=== PATIENT | male | born 1950 | race American Indian/Alaskan Native ===

== ENCOUNTER 2016-07-12 21:39 | Inpatient (IN) | payer OTHER ==
[2016-07-12] MEDS ORDERED: NACL 0.9% 1000 ML 1,000 ML IV ONE (21:55)
--- NOTE | 2016-07-12 22:05 | Emergency Department Report ---
ED General Adult HPI - General Chief complaint: GI Bleed Stated complaint: RECTAL BLEEDING Time Seen by Provider: 07/12/16 22:02 Source: patient, EMS (ems notes not available at time of chart dictation), RN notes reviewed, old records reviewed Mode of arrival: Ambulatory Limitations: No Limitations - History of Present Illness Initial comments: This is a 66-year-old male. He is previously unknown to me. Has a past medical history of homelessness, symptomatic anemia. Patient had endoscopy performed at this hospital November 2015, which demonstrated multiple ulcers in the antrum of the stomach and duodenum, gastroenterology recommended PPI twice a day and Carafate. Patient indicates he cannot afford his medications. He presents to the ER with black tarry stool, vomiting a few times. There is no hematemesis. He is not dizzy. He is not lightheaded. There is no chest pain. There is no shortness of breath. -: Gradual Consistency: constant Improves with: none Worsens with: none Associated Symptoms: nausea/vomiting. denies: confusion, chest pain, cough, diaphoresis, fever/chills, headaches, loss of appetite, malaise, shortness of breath, syncope, weakness - Related Data Home Medications Medication Instructions Recorded Confirmed Last Taken No Known Home Medications [No 07/13/16 07/13/16 Unknown Reported Home Medications] Allergies Allergy/AdvReac Type Severity Reaction Status Date / Time No Known Allergies Allergy Unverified 11/09/15 12:39 ED Review of Systems ROS: Stated complaint: RECTAL BLEEDING Other details as noted in HPI Constitutional: denies: malaise Eyes: denies: vision change ENT: denies: epistaxis Respiratory: denies: cough Cardiovascular: denies: chest pain Gastrointestinal: hematemesis, hematochezia Genitourinary: denies: urgency, dysuria Musculoskeletal: denies: back pain Skin: denies: rash Psychiatric: denies: homicidal thoughts, suicidal thoughts ED Past Medical Hx - Past Medical History Hx Hypertension: No Hx Congestive Heart Failure: No Hx Diabetes: No Hx Sickle Cell Disease: No Hx Asthma: No Hx COPD: No - Surgical History Additional Surgical History: right arm and leg and left elbow repair - Social History Smoking Status: Current Some Day Smoker - Medications Home Medications: Home Medications Medication Instructions Recorded Confirmed Last Taken Type No Known Home Medications [No 07/13/16 07/13/16 Unknown History Reported Home Medications] ED Physical Exam - General Limitations: No Limitations General appearance: alert, in no apparent distress - Head Head exam: Present: atraumatic, normocephalic - Eye Eye exam: Present: normal appearance, EOMI. Absent: nystagmus - ENT ENT exam: Present: normal exam, normal orophraynx, mucous membranes moist, normal external ear exam - Neck Neck exam: Present: normal inspection, full ROM. Absent: tenderness, meningismus - Respiratory Respiratory exam: Present: normal lung sounds bilaterally. Absent: respiratory distress, wheezes, rales, rhonchi, stridor, chest wall tenderness, accessory muscle use, decreased breath sounds - Cardiovascular Cardiovascular Exam: Present: normal rhythm, tachycardia, normal heart sounds. Absent: systolic murmur, diastolic murmur, rubs, gallop - GI/Abdominal GI/Abdominal exam: Present: soft, normal bowel sounds. Absent: distended, tenderness, guarding, pulsatile mass - Rectal Rectal exam: Present: normal inspection, normal rectal tone, heme (+) stool, black stool (during rectal examination, I am escorted by ER nurse Rafael Colon) - Extremities Exam Extremities exam: Present: normal inspection, full ROM, normal capillary refill. Absent: pedal edema, joint swelling, calf tenderness - Back Exam Back exam: Present: normal inspection, full ROM. Absent: tenderness, CVA tenderness (R), CVA tenderness (L), muscle spasm, paraspinal tenderness, vertebral tenderness - Neurological Exam Neurological exam: Present: alert, oriented X3, normal gait, other (Extraocular movements intact. Tongue midline. No facial droop. Facial sensation intact to light touch in the V1, V2, V3 distribution bilaterally. 5 and 5 strength in 4 extremities.. Sensation is intact to light touch in 4 extremities.). Absent : motor sensory deficit - Psychiatric Psychiatric exam: Present: normal affect, normal mood. Absent: homicidal ideation, suicidal ideation - Skin Skin exam: Present: warm, dry, intact, normal color. Absent: rash ED Course Vital Signs 07/12/16 07/12/16 07/12/16 21:54 22:57 23:01 Temperature 98.7 F Pulse Rate 117 H Respiratory 20 Rate Blood Pressure 113/65 [Right] O2 Sat by Pulse 99 98 99 Oximetry 07/12/16 07/12/16 07/12/16 23:11 23:21 23:31 Temperature Pulse Rate 96 H 97 H 91 H Respiratory 14 15 16 Rate Blood Pressure [Right] O2 Sat by Pulse 98 99 98 Oximetry 07/12/16 07/12/16 07/13/16 23:41 23:51 00:01 Temperature Pulse Rate 97 H 94 H 97 H Respiratory 13 15 15 Rate Blood Pressure [Right] O2 Sat by Pulse 97 99 99 Oximetry 07/13/16 07/13/16 07/13/16 00:11 00:21 00:30 Temperature Pulse Rate 100 H 94 H 92 H Respiratory 16 17 14 Rate Blood Pressure [Right] O2 Sat by Pulse 99 97 97 Oximetry 07/13/16 07/13/16 07/13/16 00:41 00:51 01:01 Temperature Pulse Rate 101 H 101 H 99 H Respiratory 13 15 14 Rate Blood Pressure [Right] O2 Sat by Pulse 99 98 97 Oximetry 07/13/16 07/13/16 07/13/16 01:11 01:21 01:31 Temperature Pulse Rate 97 H 104 H 103 H Respiratory 13 15 15 Rate Blood Pressure [Right] O2 Sat by Pulse 97 97 97 Oximetry 07/13/16 01:45 Temperature Pulse Rate Respiratory Rate Blood Pressure 137/79 [Right] O2 Sat by Pulse Oximetry - Reevaluation(s) Reevaluation #1: 07/12/16 23:31 differential diagnosis: Alcoholism, upper GI bleed, GERD, gastritis Assessment and plan: 66-year-old male who had endoscopy a few months ago showing multiple ulcers, noncompliant with medications, black stool, guaiac positive, tachycardic, most likely upper GI bleed. He will be started on IV fluids and Protonix. He is not homicidal or suicidal. An initial metabolic panel was hemolyzed, repeat metabolic panel has been ordered. Case is discussed with gastroenterology, Dr. Starkey, he recommends nothing by mouth after midnight, recommends admission to the hospital for further evaluation and management of presumed upper GI bleed. The case is discussed with the Hospital physician, Dr. Malcolm, who accepts the patient to his service. 07/13/16 00:52 ED Medical Decision Making - Lab Data Result diagrams: 07/12/16 22:30 07/12/16 23:33 Vital Signs 07/12/16 21:54 Temperature 98.7 F Pulse Rate 117 H Respiratory 20 Rate Blood Pressure 113/65 [Right] O2 Sat by Pulse 99 Oximetry Labs 07/12/16 07/12/16 07/12/16 22:30 22:30 22:30 WBC 9.2 RBC 5.48 H Hgb 12.6 Hct 39.7 MCV 72 L MCH 23 L MCHC 32 RDW 16.2 H Plt Count 135 L Lymph % (Auto) 10.9 L Roberts % (Auto) 6.2 Eos % (Auto) 0.0 Baso % (Auto) 0.3 Lymph # 1.0 L Roberts # 0.6 Eos # 0.0 Baso # 0.0 Seg Neutrophils % 82.6 H Seg Neutrophils # 7.6 PT 13.3 INR 1.02 APTT 23.3 L Sodium TNR Potassium TNR Chloride TNR Carbon Dioxide TNR Anion Gap TNR BUN TNR Creatinine TNR Estimated GFR TNR BUN/Creatinine Ratio TNR Glucose TNR Calcium TNR Magnesium Total Bilirubin TNR AST TNR ALT TNR Alkaline Phosphatase TNR Ammonia Total Protein TNR Albumin TNR Albumin/Globulin Ratio TNR Lipase TNR Plasma/Serum Alcohol 07/12/16 07/12/16 07/12/16 22:30 22:30 22:30 WBC RBC Hgb Hct MCV MCH MCHC RDW Plt Count Lymph % (Auto) Roberts % (Auto) Eos % (Auto) Baso % (Auto) Lymph # Roberts # Eos # Baso # Seg Neutrophils % Seg Neutrophils # PT INR APTT Sodium Potassium Chloride Carbon Dioxide Anion Gap BUN Creatinine Estimated GFR BUN/Creatinine Ratio Glucose Calcium Magnesium 2.00 Total Bilirubin AST ALT Alkaline Phosphatase Ammonia 24.0 L Total Protein Albumin Albumin/Globulin Ratio Lipase Plasma/Serum Alcohol < 0.01 Vital Signs 07/12/16 21:54 Temperature 98.7 F Pulse Rate 117 H Respiratory 20 Rate Blood Pressure 113/65 [Right] O2 Sat by Pulse 99 Oximetry Lab Results 07/12/16 07/12/16 07/12/16 Range/Units 22:30 22:30 22:30 WBC 9.2 (4.5-11.0) K/mm3 RBC 5.48 H (3.65-5.03) M/mm3 Hgb 12.6 (11.8-15.2) gm/dl Hct 39.7 (35.5-45.6) % MCV 72 L (84-94) fl MCH 23 L (28-32) pg MCHC 32 (32-34) % RDW 16.2 H (13.2-15.2) % Plt Count 135 L (140-440) K/mm3 Lymph % (Auto) 10.9 L (13.4-35.0) % Roberts % (Auto) 6.2 (0.0-7.3) % Eos % (Auto) 0.0 (0.0-4.3) % Baso % (Auto) 0.3 (0.0-1.8) % Lymph # 1.0 L (1.2-5.4) K/mm3 Roberts # 0.6 (0.0-0.8) K/mm3 Eos # 0.0 (0.0-0.4) K/mm3 Baso # 0.0 (0.0-0.1) K/mm3 Seg Neutrophils % 82.6 H (40.0-70.0) % Seg Neutrophils # 7.6 (1.8-7.7) K/mm3 PT 13.3 (12.2-14.9) Sec. INR 1.02 (0.87-1.13) APTT 23.3 L (24.2-36.6) Sec. Sodium TNR Potassium TNR Chloride TNR Carbon Dioxide TNR Anion Gap TNR BUN TNR Creatinine TNR Estimated GFR TNR BUN/Creatinine Ratio TNR Glucose TNR Lactic Acid (0.7-2.0) mmol/L Calcium TNR Magnesium (1.7-2.3) mg/dL Total Bilirubin TNR AST TNR ALT TNR Alkaline Phosphatase TNR Ammonia (25-60) umol/L Total Protein TNR Albumin TNR Albumin/Globulin Ratio TNR Lipase TNR Plasma/Serum Alcohol (0-0.07) gm% Blood Type Antibody Screen 07/12/16 07/12/16 07/12/16 Range/Units 22:30 22:30 22:30 WBC (4.5-11.0) K/mm3 RBC (3.65-5.03) M/mm3 Hgb (11.8-15.2) gm/dl Hct (35.5-45.6) % MCV (84-94) fl MCH (28-32) pg MCHC (32-34) % RDW (13.2-15.2) % Plt Count (140-440) K/mm3 Lymph % (Auto) (13.4-35.0) % Roberts % (Auto) (0.0-7.3) % Eos % (Auto) (0.0-4.3) % Baso % (Auto) (0.0-1.8) % Lymph # (1.2-5.4) K/mm3 Roberts # (0.0-0.8) K/mm3 Eos # (0.0-0.4) K/mm3 Baso # (0.0-0.1) K/mm3 Seg Neutrophils % (40.0-70.0) % Seg Neutrophils # (1.8-7.7) K/mm3 PT (12.2-14.9) Sec. INR (0.87-1.13) APTT (24.2-36.6) Sec. Sodium Potassium Chloride Carbon Dioxide Anion Gap BUN Creatinine Estimated GFR BUN/Creatinine Ratio Glucose Lactic Acid (0.7-2.0) mmol/L Calcium Magnesium (1.7-2.3) mg/dL Total Bilirubin AST ALT Alkaline Phosphatase Ammonia 24.0 L (25-60) umol/L Total Protein Albumin Albumin/Globulin Ratio Lipase Plasma/Serum Alcohol < 0.01 (0-0.07) gm% Blood Type O POSITIVE Antibody Screen TNR 07/12/16 07/12/16 07/12/16 Range/Units 22:30 23:31 23:33 WBC (4.5-11.0) K/mm3 RBC (3.65-5.03) M/mm3 Hgb (11.8-15.2) gm/dl Hct (35.5-45.6) % MCV (84-94) fl MCH (28-32) pg MCHC (32-34) % RDW (13.2-15.2) % Plt Count (140-440) K/mm3 Lymph % (Auto) (13.4-35.0) % Roberts % (Auto) (0.0-7.3) % Eos % (Auto) (0.0-4.3) % Baso % (Auto) (0.0-1.8) % Lymph # (1.2-5.4) K/mm3 Roberts # (0.0-0.8) K/mm3 Eos # (0.0-0.4) K/mm3 Baso # (0.0-0.1) K/mm3 Seg Neutrophils % (40.0-70.0) % Seg Neutrophils # (1.8-7.7) K/mm3 PT (12.2-14.9) Sec. INR (0.87-1.13) APTT (24.2-36.6) Sec. Sodium 143 Potassium 4.8 Chloride 103.4 Carbon Dioxide 24 Anion Gap 20 BUN 45 H Creatinine 1.2 Estimated GFR > 60 BUN/Creatinine Ratio 37.50 Glucose 111 H Lactic Acid 1.90 (0.7-2.0) mmol/L Calcium 9.3 Magnesium 2.00 (1.7-2.3) mg/dL Total Bilirubin 0.60 AST 20 ALT 15 Alkaline Phosphatase 102 Ammonia (25-60) umol/L Total Protein 6.7 Albumin 4.0 Albumin/Globulin Ratio 1.5 Lipase 31 Plasma/Serum Alcohol (0-0.07) gm% Blood Type Antibody Screen - EKG Data -: EKG Interpreted by Me EKG shows normal: sinus rhythm Rate: tachycardia - EKG Data When compared to previous EKG there are: no significant change Interpretation: no acute changes, unchanged when compared t 07/12/16 23:32 sinus tachycardia, 105 bpm, normal intervals, normal axis, consistent with STEMI, appears unchanged when compared to prior EKG from November 2015. Critical care attestation.: If time is entered above; I have spent that time in minutes in the direct care of this critically ill patient, excluding procedure time. ED Disposition Clinical Impression: GI bleed Disposition: OP ADMITTED IP TO THIS HOSP Is pt being admited?: Yes Condition: Good
[2016-07-12] MEDS ORDERED: NACL 0.9% 1000 ML 2,000 ML IV ONE (22:26)
[2016-07-12] MEDS ORDERED: PROTONIX IV ONE (22:26)
[2016-07-12] MEDS ORDERED: REGLAN IV ONE (22:26)
[2016-07-12 23:04] LABS: Basophils % (Auto) 0.3 % (0.0-1.8); Hematocrit 39.7 % (35.5-45.6); Hemoglobin 12.6 gm/dl (11.8-15.2); Mean Corpuscular HGB Conc 32 % (32-34); Mean Corpuscular Volume 72 fl (84-94); Platelet Count 135 K/mm3 (140-440); Red Blood Count 5.48 M/mm3 (3.65-5.03); Red Cell Distribution Width 16.2 % (13.2-15.2); White Blood Count 9.2 K/mm3 (4.5-11.0)
[2016-07-12 23:12] LABS: Mean Corpuscular Hemoglobin 23 pg (28-32)
[2016-07-12 23:15] LABS: INR 1.02 (0.87-1.13)
[2016-07-12 23:16] LABS: Partial Thromboplastin Time 23.3 Sec. (24.2-36.6)
[2016-07-12 23:19] LABS: Anion Gap TNR mmol/L; BUN/Creatinine Ratio TNR; Blood Urea Nitrogen TNR mg/dL (9-20); Carbon Dioxide TNR mmol/L (22-30); Chloride TNR mmol/L (98-107); Potassium TNR mmol/L (3.6-5.0); Sodium TNR mmol/L (137-145)
[2016-07-12 23:20] LABS: Alanine Aminotransferase TNR units/L (7-56); Albumin TNR g/dL (3.9-5); Albumin/Globulin Ratio TNR %; Alkaline Phosphatase TNR units/L (35-129); Bilirubin,Total TNR mg/dL (0.1-1.2); Calcium TNR mg/dL (8.4-10.2); Glucose TNR mg/dL (75-100); Total Protein TNR g/dL (6.3-8.2)
[2016-07-12 23:21] LABS: Lipase TNR units/L (13-60)
[2016-07-12] MEDS ORDERED: PROTONIX 80 MG in NACL 0.9% 100 ML IV SCH (23:45)
[2016-07-13 00:24] LABS: Alanine Aminotransferase 15 units/L (7-56); Albumin/Globulin Ratio 1.5 %; Alkaline Phosphatase 102 units/L (35-129); Blood Urea Nitrogen 45 mg/dL (9-20); Calcium 9.3 mg/dL (8.4-10.2); Carbon Dioxide 24 mmol/L (22-30); Glucose 111 mg/dL (75-100); Lipase 31 units/L (13-60); Total Protein 6.7 g/dL (6.3-8.2)
[2016-07-13 00:42] LABS: Anion Gap 20 mmol/L; Chloride 103.4 mmol/L (98-107); Potassium 4.8 mmol/L (3.6-5.0); Sodium 143 mmol/L (137-145)
[2016-07-13] MEDS ORDERED: DULCOLAX PR PRN (07:31)
[2016-07-13] MEDS ORDERED: ZOFRAN IV PRN (07:31)
[2016-07-13] MEDS ORDERED: TYLENOL PO PRN (07:31)
[2016-07-13] MEDS ORDERED: MILK OF MAGNESIA PO PRN (07:31)
[2016-07-13 08:05] LABS: Hematocrit 33.2 % (35.5-45.6); Hemoglobin 10.5 gm/dl (11.8-15.2)
[2016-07-13] MEDS ORDERED: LIBRIUM PO PRN (09:43)
[2016-07-13] MEDS ORDERED: ATIVAN IV PRN ×3 (09:43)
[2016-07-13] MEDS ORDERED: 1: FOLVITE 1 MG, INFUVITE 10 ML, VITAMIN B-1 100 MG in NACL 0.9% 1000 ML 988.8 ML 2: NA IV SCH (10:00)
[2016-07-13] MEDS ORDERED: NACL 0.9% 1000 ML 1,000 ML IV SCH (10:00)
--- NOTE | 2016-07-13 10:54 | Admit Criteria Form ---
Admission Criteria Documentation: GASTROINTESTINAL BLEEDING Clinical Indications for Inpatient Care (Place 'X' for any and all applicable criteria): Ongoing inpatient care may be indicated for gastrointestinal bleeding with ANY ONE of the following (4)(20)(21)(22)(23)(24): [X ]I. Active bleeding (eg, fresh voluminous blood in emesis or nasogastric aspirate, or per rectum) [ ]II. Hemodynamic instability [ ]III. Anticoagulation therapy or coagulopathy ((eg, advanced liver disease, irreversible anticoagulation) [ ]IV. Ischemic colitis (22) [ ]V. Endoscopy showing arterial bleeding, adherent clot, nonbleeding visible vessel, varices, flat red spots, ulcer size greater than 2 cm, or portal hypertensive gastropathy [ ]. High-risk low platelet count [ ]VII. Anemia requiring inpatient care as indicated by ANY ONE of the following a)[ ] Cognitive impairment b)[ ] Syncope c)[ ] Heart failure d)[ ] Chest pain e)[ ] Dyspnea f)[ ] Other findings suggesting inadequate perfusion (eg, peripheral or myocardial ischemia, end organ dysfunction) [ ]VIII. High-risk low platelet count [ ]IX. Suspected variceal cause of bleeding as indicated by ANY ONE of the following(27)(28): a)[ ] Known varices b)[ ] Hepatomegaly or splenomegaly c)[ ] Ascites d)[ ] Jaundice or scleral icterus e)[ ] History of liver disease (eg, cirrhosis) f)[ ] Physical findings of portal hypertension (eg, caput medusa) g)[ ] Comorbid disorder indicating risk for portal vein thrombosis (eg , abdominal surgery, sepsis, shock, exchange transfusion, prior umbilical vein catheterization) Extended stay may be needed until ALL of the following are present(20)(38)(47): [ ]a) Hemodynamic stability [ ]b) No evidence of active bleeding (eg, stable Hematocrit) [ ]c) Platelet count, prothrombin time, and partial thromboplastin time acceptable for next level of care [ ]d) Surgical or other acute intervention not needed [ ]e) Oral hydration and diet tolerated The original [facility] content created by Rachel Soares has been revised. The portions of the content which have been revised are identified through the use of italic text or in bold, and [facility] has neither reviewed nor approved the modified material. All other unmodified content is copyright [facility]. Please see references footnoted in the original [facility] edition 2016 Admission Criteria Met: Yes
--- NOTE | 2016-07-13 14:37 | Gastroenterology Consultation ---
History of Present Illness - Reason for Consult Consult date: 07/13/16 melena Requesting physician: CAITLYN MARTINEZ - History of Present Illness Mr Mckenzie is a 66 y/o male admitted with 2 episodes of melena. Mr Mckenzie states he noted black stool x 2 and presented to the ED due to prior GI bleeding. He was last seen in 11/2015 and underwent EGD revealing gastric ulcers. Pathology was pending and the patient was to follow up in clinic, which he did not do. He was sent home on PPI x 30 days. He explains he is homeless and can not afford his medications. No further melena since yesterday. No abdominal pain and the patient wants to eat. Of note, path + for H pylori in 11/2015. Patient has had no treatment for H pylori. Past History Past Medical History: No medical history Past Surgical History: Other (Right arm/ elbow surgery) Social history: smoking, other (homeless) Family history: no significant family history Medications and Allergies Allergies Allergy/AdvReac Type Severity Reaction Status Date / Time No Known Allergies Allergy Unverified 11/09/15 12:39 Home Medications Medication Instructions Recorded Confirmed Last Taken Type No Known Home Medications [No 07/13/16 07/13/16 Unknown History Reported Home Medications] Active Meds: Active Medications Acetaminophen (Tylenol) 650 mg PO Q4H PRN PRN Reason: Pain MILD(1-3)/Fever >100.5/CHA Bisacodyl (Dulcolax) [address] QDAY PRN PRN Reason: Constipation unrelieved by MOM Chlordiazepoxide HCl (Librium) 50 mg PO Q1H PRN PRN Reason: CIWA-Ar 8-15 Pantoprazole Sodium 80 mg/ (Sodium Chloride) 100 mls @ 10 mls/hr IV DIRECT ROBB PRN Reason: 8 MG/HR Sodium Chloride (Nacl 0.9% 1000 Ml) 1,000 mls @ 125 mls/hr IV DIRECT ROBB Thiamine HCl 100 mg/ Folic Acid 1 mg/ Multivitamins/Minerals 10 ml/ Sodium Chloride 1,011.2 mls @ 125 mls/hr IV DAILY RBOB Lorazepam (Ativan) 2 mg IV Q1H PRN PRN Reason: CIWA-Ar 8-15 Lorazepam (Ativan) 4 mg IV Q1H PRN PRN Reason: CIWA-Ar 16-25 Lorazepam (Ativan) 4 mg IV Q15MIN PRN PRN Reason: CIWA-Ar >25 Stop: 07/18/16 09:44 Magnesium Hydroxide (Milk Of Magnesia) 30 ml PO Q4H PRN PRN Reason: Constipation Ondansetron HCl (Zofran) 4 mg IV Q8H PRN PRN Reason: N/V unrelieved by Reglan Review of Systems - Review of Systems All systems: negative Constitutional: weakness Gastrointestinal: melena Exam - Constitutional Vital Signs: Temp Pulse Resp BP Pulse Ox 98.7 F 92 H 18 130/80 98 07/13/16 11:00 07/13/16 11:00 07/13/16 11:00 07/13/16 11:00 07/13/16 11:00 General appearance: no acute distress - EENT Eyes: EOM intact ENT: hearing intact - Neck Neck: supple - Respiratory Respiratory: bilateral: CTA - Cardiovascular Rhythm: regular Heart Sounds: Present: S1 & S2 Extremities: No edema - Gastrointestinal General gastrointestinal: Present: non-tender, non-distended, normal bowel sounds, other (mildly distended) - Integumentary Integumentary: Present: warm, dry - Neurologic Neurological: alert and oriented x3 - Psychiatric Psychiatric: appropriate mood/affect, cooperative - Labs CBC & Chem 7: 07/13/16 07:53 07/12/16 23:33 Lab Results: Laboratory Results - last 24 hr 07/13/16 07:53 Hgb 10.5 L Hct 33.2 L D Assessment and Plan 1. Melena -EGD in 11/2015, patient took 30 days of PPI. H pylori + with no treatment. -Likely patient continues to have gastric ulcers. -Noted decrease in H/H, however stable. -medical management at this time. -PPI BID -Recommend case management consult to address the medication needs of the patient. He would require at minimum triple therapy for eradication of H pylori. -No plans for endoscopy at this time. -The patient states he can follow up in our [place] office. I have asked him to follow up in clinic in 3-4 weeks. -Ok to restart regular diet.
--- NOTE | 2016-07-13 15:26 | History and Physical Report ---
History of Present Illness Date of examination: 07/13/16 Date of admission: 07/13/16 00:52 Chief complaint: GI BLEED History of present illness: Patient is a 66 year old male with hx of Alcohol abuse, homeless, gastric ulcers , but non compliant with medications, presents to the ED with complaints of Melena. He reports black stool x 2 prior to arrival to GI bleeding. He continues to indulge in Alcohol use and states he gets it when he has the money. When asked why he does not take his meds, he claims he cannot afford it. Patient had an unrevealing EGD revealing gastric ulcers last year. He was sent home on PPI x 30 days. No further Melena since yesterday. No abdominal pain and the patient wants to eat. Review of previous pathology path + for H pylori in 11/2015. Past History Past Medical History: No medical history, other (ALCOHOL) Past Surgical History: Other (Right arm/ elbow surgery) Social history: smoking, other (homeless) Family history: no significant family history Medications and Allergies Allergies Allergy/AdvReac Type Severity Reaction Status Date / Time No Known Allergies Allergy Unverified 11/09/15 12:39 Home Medications Medication Instructions Recorded Confirmed Last Taken Type No Known Home Medications [No 07/13/16 07/13/16 Unknown History Reported Home Medications] Active Meds: Active Medications Acetaminophen (Tylenol) 650 mg PO Q4H PRN PRN Reason: Pain MILD(1-3)/Fever >100.5/CHA Bisacodyl (Dulcolax) 10 mg HI QDAY PRN PRN Reason: Constipation unrelieved by MOM Chlordiazepoxide HCl (Librium) 50 mg PO Q1H PRN PRN Reason: CIWA-Ar 8-15 Pantoprazole Sodium 80 mg/ (Sodium Chloride) 100 mls @ 10 mls/hr IV DIRECT ROBB PRN Reason: 8 MG/HR Sodium Chloride (Nacl 0.9% 1000 Ml) 1,000 mls @ 125 mls/hr IV DIRECT ROBB Thiamine HCl 100 mg/ Folic Acid 1 mg/ Multivitamins/Minerals 10 ml/ Sodium Chloride 1,011.2 mls @ 125 mls/hr IV DAILY ROBB Lorazepam (Ativan) 2 mg IV Q1H PRN PRN Reason: CIWA-Ar 8-15 Lorazepam (Ativan) 4 mg IV Q1H PRN PRN Reason: CIWA-Ar 16-25 Lorazepam (Ativan) 4 mg IV Q15MIN PRN PRN Reason: CIWA-Ar >25 Stop: 07/18/16 09:44 Magnesium Hydroxide (Milk Of Magnesia) 30 ml PO Q4H PRN PRN Reason: Constipation Ondansetron HCl (Zofran) 4 mg IV Q8H PRN PRN Reason: N/V unrelieved by Reglan Exam - Constitutional Vitals: Temp Pulse Resp BP Pulse Ox 98.7 F 92 H 18 130/80 98 07/13/16 11:00 07/13/16 11:00 07/13/16 11:00 07/13/16 11:00 07/13/16 11:00 Results - Labs CBC & Chem 7: 07/13/16 07:53 07/12/16 23:33 Labs: Laboratory Last Values WBC 9.2 K/mm3 (4.5-11.0) 07/12/16 22:30 RBC 5.48 M/mm3 (3.65-5.03) H 07/12/16 22:30 Hgb 10.5 gm/dl (11.8-15.2) L 07/13/16 07:53 Hct 33.2 % (35.5-45.6) L D 07/13/16 07:53 MCV 72 fl (84-94) L 07/12/16 22:30 MCH 23 pg (28-32) L 07/12/16 22:30 MCHC 32 % (32-34) 07/12/16 22:30 RDW 16.2 % (13.2-15.2) H 07/12/16 22:30 Plt Count 135 K/mm3 (140-440) L 07/12/16 22:30 Lymph % (Auto) 10.9 % (13.4-35.0) L 07/12/16 22:30 Woods % (Auto) 6.2 % (0.0-7.3) 07/12/16 22:30 Eos % (Auto) 0.0 % (0.0-4.3) 07/12/16 22:30 Baso % (Auto) 0.3 % (0.0-1.8) 07/12/16 22:30 Lymph # 1.0 K/mm3 (1.2-5.4) L 07/12/16 22:30 Woods # 0.6 K/mm3 (0.0-0.8) 07/12/16 22:30 Eos # 0.0 K/mm3 (0.0-0.4) 07/12/16 22:30 Baso # 0.0 K/mm3 (0.0-0.1) 07/12/16 22:30 Seg Neutrophils % 82.6 % (40.0-70.0) H 07/12/16 22:30 Seg Neutrophils # 7.6 K/mm3 (1.8-7.7) 07/12/16 22:30 PT 13.3 Sec. (12.2-14.9) 07/12/16 22:30 INR 1.02 (0.87-1.13) 07/12/16 22:30 APTT 23.3 Sec. (24.2-36.6) L 07/12/16 22:30 Sodium 143 mmol/L (137-145) 07/12/16 23:33 Potassium 4.8 mmol/L (3.6-5.0) 07/12/16 23:33 Chloride 103.4 mmol/L (98-107) 07/12/16 23:33 Carbon Dioxide 24 mmol/L (22-30) 07/12/16 23:33 Anion Gap 20 mmol/L 07/12/16 23:33 BUN 45 mg/dL (9-20) H 07/12/16 23:33 Creatinine 1.2 mg/dL (0.8-1.5) 07/12/16 23:33 Estimated GFR > 60 ml/min 07/12/16 23:33 BUN/Creatinine Ratio 37.50 % 07/12/16 23:33 Glucose 111 mg/dL (75-100) H 07/12/16 23:33 Lactic Acid 1.90 mmol/L (0.7-2.0) 07/12/16 23:31 Calcium 9.3 mg/dL (8.4-10.2) 07/12/16 23:33 Magnesium 2.00 mg/dL (1.7-2.3) 07/12/16 22:30 Total Bilirubin 0.60 mg/dL (0.1-1.2) 07/12/16 23:33 AST 20 units/L (5-40) 07/12/16 23:33 ALT 15 units/L (7-56) 07/12/16: Alkaline Phosphatase 102 units/L (35-129) 07/12/16 23: Ammonia 24.0 umol/L (25-60) L 07/12/16 22:30 Total Protein 6.7 g/dL (6.3-8.2) 07/12/16: Albumin 4.0 g/dL (3.9-5) 07/12/16: Albumin/Globulin Ratio 1.5 % 07/12/16: Lipase 31 units/L (13-60) 07/12/16: Plasma/Serum Alcohol < 0.01 gm% (0-0.07) 07/12/16 22:30 Blood Type O POSITIVE 07/12/16 22:30 Antibody Screen TNR 07/12/16: SAÚL Antibody Screen Negative 07/12/16 22:30 Assessment and Plan Assessment and plan: Patient is a 66 year old male with hx of Alcohol abuse, homeless, gastric ulcers , but non compliant with medications, presents to the ED with complaints of Melena. He reports black stool x 2 prior to arrival to GI bleeding. He continues to indulge in Alcohol use and states he gets it when he has the money. When asked why he does not take his meds, he claims he cannot afford it. Patient had an unrevealing EGD revealing gastric ulcers last year. He was sent home on PPI x 30 days. No further Melena since yesterday. No abdominal pain and the patient wants to eat. Review of previous pathology path + for H pylori in 11/2015. * GI bleed. Melena * Alcohol abuse * Hx of H Pylori * Anemia- STABLE Plan: * Start patient on PPI * Supportive care, monitor his H&H * CIWA protocol * Extensive discussion with the patient about medication compliance and plan of care * Obtain GI evaluation * DVT and GI prophylaxis . Advance Directives: Yes Plan of care discussed with patient/family: Yes
[2016-07-13] MEDS: VITAMIN B-1 100 MG, FOLVITE 1 MG, INFUVITE 10 ML in NACL 0.9% 1000 ML 1,000 ML IV SCH (20:47)
--- NOTE | 2016-07-14 07:57 | Discharge Summary ---
Providers - Providers Date of Admission: 07/13/16 00:52 Date of discharge: 07/14/16 Attending physician: SUSANA RIVAS 07/13/16 14:44 Consult to Case Management [CONS] Routine Services Needed at Discharge: Other Notified:: copy given to cm Additional Physician Instructions: Patient will need medications to treat H pylori as well as transportation to clinic appt if available. Primary care physician: [employer] Hospitalization Condition: Good Hospital course: Patient is a 66 year old male with hx of Alcohol abuse, homeless, gastric ulcers , but non compliant with medications, presents to the ED with complaints of Melena. He reports black stool x 2 prior to arrival to GI bleeding. He continues to indulge in Alcohol use and states he gets it when he has the money. When asked why he does not take his meds, he claims he cannot afford it. Patient had an unrevealing EGD revealing gastric ulcers last year. This was seen by GI and determine he should be managed medically with no plans for endoscopy. He was sent home on PPI x 30 days. No further Melena since yesterday. No abdominal pain and the patient wants to eat. The patient states he can follow up in our [place] office. Disposition: DISCHARGED TO HOME OR SELFCARE Core Measure Documentation - Palliative Care Palliative Care/ Comfort Measures: Not Applicable - Core Measures Any of the following diagnoses?: none Exam - Constitutional Vitals: Temp Pulse Resp BP Pulse Ox 99.1 F 84 18 102/57 98 07/14/16 00:37 07/14/16 00:37 07/14/16 00:37 07/14/16 00:37 07/14/16 00:37 General appearance: Present: no acute distress - EENT Eyes: Present: PERRL, EOM intact ENT: hearing intact, clear oral mucosa - Neck Neck: Present: supple, normal ROM - Respiratory Respiratory effort: normal Respiratory: bilateral: CTA - Cardiovascular Rhythm: regular Heart Sounds: Present: S1 & S2 - Extremities Extremities: no ischemia - Abdominal General gastrointestinal: Present: soft, non-tender, non-distended, normal bowel sounds - Musculoskeletal Musculoskeletal: strength equal bilaterally - Psychiatric Psychiatric: appropriate mood/affect, intact judgment & insight - Neurologic Neurologic: CNII-XII intact, moves all extremities Plan Activity: advance as tolerated Weight Bearing Status: Weight Bear as Tolerated Diet: low fat, low cholesterol, low salt Follow up with: PRIMARY CAREMD [Primary Care Provider] - 3-5 Days GEORGE CASAS MD [Staff Physician] - 7 Days Forms: Accompanied Note Prescriptions: LORazepam [Ativan] 0.5 mg PO Q6H PRN #30 tablet PRN Reason: Anxiety Pantoprazole [Protonix TAB] 40 mg PO QDAY #30 tablet
[2016-07-14] MEDS ORDERED: PROTONIX PO SCH (10:00)
[2016-07-14] MEDS: VITAMIN B-1 100 MG, FOLVITE 1 MG, INFUVITE 10 ML in NACL 0.9% 1000 ML 1,000 ML IV SCH (10:38)
[2016-07-14 11:23] LABS: Basophils % (Auto) 1.1 % (0.0-1.8); Eosinophils % (Auto) 0.3 % (0.0-4.3); Hematocrit 33.4 % (35.5-45.6); Hemoglobin 10.4 gm/dl (11.8-15.2); Mean Corpuscular HGB Conc 31 % (32-34); Mean Corpuscular Volume 73 fl (84-94); Platelet Count 111 K/mm3 (140-440); Red Blood Count 4.57 M/mm3 (3.65-5.03); Red Cell Distribution Width 16.1 % (13.2-15.2); White Blood Count 3.9 K/mm3 (4.5-11.0)
[2016-07-14 11:25] LABS: Mean Corpuscular Hemoglobin 23 pg (28-32)
--- NOTE | 2016-07-14 13:18 | Gastroenterology Progress Note ---
Assessment and Plan 1. Melena -EGD in 11/2015, patient took 30 days of PPI. H pylori + with no treatment. -Patient had poor compliance due to being homeless. -PPI daily. - I have asked the patient to follow up in our [place] office. He is agreeable. -Recommend abx for H pylori (Amox 1gm BID, Clarith 500mg BID, both for 10 days, as well as chronic protonix) at discharge. Patient has been given coupons per CM for medications. -H/H stable, OK to DC per GI standpoint. Subjective Date of service: 07/14/16 Interval history: No acute events overnight. Objective - Constitutional Vitals: Temp Pulse Resp BP Pulse Ox 98.5 F 74 18 117/76 99 07/14/16 08:00 07/14/16 08:00 07/14/16 08:00 07/14/16 08:00 07/14/16 08:00 General appearance: no acute distress - EENT Eyes: EOM intact ENT: hearing intact - Neck Neck: supple - Respiratory Respiratory: bilateral: CTA - Cardiovascular Rhythm: regular - Gastrointestinal General gastrointestinal: Present: soft, non-tender - Labs CBC & Chem 7: 07/14/16 10:54 07/12/16 23:33 Labs: Laboratory Results - last 24 hr 07/14/16 10:54 WBC 3.9 L RBC 4.57 Hgb 10.4 L Hct 33.4 L MCV 73 L MCH 23 L MCHC 31 L RDW 16.1 H Plt Count 111 L Lymph % (Auto) 26.1 [place] % (Auto) 12.0 H Eos % (Auto) 0.3 Baso % (Auto) 1.1 Lymph # 1.0 L [place] # 0.5 Eos # 0.0 Baso # 0.0 Seg Neutrophils % 60.5 Seg Neutrophils # 2.4
[2016-07-14 16:16] VITALS: BP 103/70
== END 2016-07-14 17:15 | disposition home or self-care (01) | DRG 379 ==
LOC: ED 21:39 → 3A 07-13 00:52
PROVIDERS: ADMIT Internal Medicine; ATTEND Internal Medicine
DX: K92.2 Gastrointestinal hemorrhage, unspecified (principal); F17.210 Nicotine dependence, cigarettes, uncomplicated; F10.10 Alcohol abuse, uncomplicated; D64.9 Anemia, unspecified; Z91.14 Patient's other noncompliance with medication regimen; Z59.0 Homelessness
CPT/HCPCS: 36415; 80053; 80320; 82140; 82271; 83690; 83735; 85014; 85018; 85025; 85610; 85730; 86850; 86900; 86901; 93005; 93010; 96374; 96375; 99406; C9113; G0480; J2060; J2765; J3411; J7030

== ENCOUNTER 2016-10-17 10:55 | Emergency (ER) | payer MEDICAID ==
[2016-10-17 12:04] VITALS: BP 119/88
--- NOTE | 2016-10-17 12:04 | Emergency Department Report ---
Chief Complaint: Abdominal Pain Stated Complaint: VOMITING Time Seen by Provider: 10/17/16 11:58 - HPI History of Present Illness: pt states he hasn't been eating for 3 days. + nausea PT has a hx of h. pylori and gastric ulcer PT states he has not drank since Sunday - ROS Review of Systems: + n/v - cp - Exam Physical Exam: PT looks well, non toxic abd soft and nontender MSE screening note: Focused history and physical exam performed. Due to findings the following was ordered: labs ED Disposition for MSE Condition: Stable
[2016-10-17 12:49] LABS: Basophils % (Auto) 0.3 % (0.0-1.8); Eosinophils % (Auto) 0.1 % (0.0-4.3); Mean Corpuscular HGB Conc 31 % (32-34); Platelet Count 147 K/mm3 (140-440); Red Blood Count 6.19 M/mm3 (3.65-5.03); White Blood Count 6.8 K/mm3 (4.5-11.0)
[2016-10-17 12:55] LABS: Hematocrit 42.6 % (35.5-45.6); Hemoglobin 13.1 gm/dl (11.8-15.2); Mean Corpuscular Hemoglobin 21 pg (28-32); Mean Corpuscular Volume 69 fl (84-94); Red Cell Distribution Width 20.3 % (13.2-15.2)
[2016-10-17 12:56] LABS: Alanine Aminotransferase 10 units/L (7-56); Albumin 4.3 g/dL (3.9-5); Albumin/Globulin Ratio 1.1 %; Alkaline Phosphatase 100 units/L (35-129); Anion Gap 21 mmol/L; BUN/Creatinine Ratio 15.83; Blood Urea Nitrogen 19 mg/dL (9-20); Calcium 9.6 mg/dL (8.4-10.2); Carbon Dioxide 26 mmol/L (22-30); Chloride 97.9 mmol/L (98-107); Glucose 133 mg/dL (75-100); Lipase 42 units/L (13-60); Sodium 141 mmol/L (137-145); Total Protein 8.3 g/dL (6.3-8.2)
[2016-10-17 13:00] LABS: INR 1.06 (0.87-1.13)
[2016-10-17 13:01] LABS: Partial Thromboplastin Time 31.5 Sec. (24.2-36.6)
[2016-10-17 13:25] LABS: Bacteria,Urine 1+ /HPF (Negative); Bilirubin,Urine SM (Negative); Blood,Urine NEG (Negative); Ketones,Urine TR mg/dL (Negative); Leukocyte Esterase,Urine LG (Negative); Mucus,Urine 3+ /HPF; Nitrite,Urine NEG (Negative)
--- NOTE | 2016-10-21 15:07 | ED Elopement Review ---
ED Pt Elopement review - Results review Lab results: Laboratory Tests 10/17/16 10/17/16 10/17/16 12:17 12:17 12:17 WBC 6.8 RBC 6.19 H Hgb 13.1 Hct 42.6 MCV 69 L MCH 21 L MCHC 31 L RDW 20.3 H Plt Count 147 Lymph % (Auto) 14.3 [place] % (Auto) 8.8 H Eos % (Auto) 0.1 Baso % (Auto) 0.3 Lymph # 1.0 L [place] # 0.6 Eos # 0.0 Baso # 0.0 Seg Neutrophils % 76.5 H Seg Neutrophils # 5.2 PT 13.7 INR 1.06 APTT 31.5 Sodium 141 Potassium 4.0 Chloride 97.9 L Carbon Dioxide 26 Anion Gap 21 BUN 19 Creatinine 1.2 Estimated GFR > 60 BUN/Creatinine Ratio 15.83 Glucose 133 H Calcium 9.6 Total Bilirubin 0.70 AST 15 ALT 10 Alkaline Phosphatase 100 Total Protein 8.3 H Albumin 4.3 Albumin/Globulin Ratio 1.1 Lipase 42 Urine Color Urine Turbidity Urine pH Ur Specific [place] Urine Protein Urine Glucose (UA) Urine Ketones Urine Blood Urine Nitrite Urine Bilirubin Urine Ictotest Urine Urobilinogen Ur Leukocyte Esterase Urine WBC (Auto) Urine RBC (Auto) U Epithel Cells (Auto) Urine Bacteria (Auto) Urine Mucus Plasma/Serum Alcohol 10/17/16 10/17/16 12:17 12:45 WBC RBC Hgb Hct MCV MCH MCHC RDW Plt Count Lymph % (Auto) [place] % (Auto) Eos % (Auto) Baso % (Auto) Lymph # [place] # Eos # Baso # Seg Neutrophils % Seg Neutrophils # PT INR APTT Sodium Potassium Chloride Carbon Dioxide Anion Gap BUN Creatinine Estimated GFR BUN/Creatinine Ratio Glucose Calcium Total Bilirubin AST ALT Alkaline Phosphatase Total Protein Albumin Albumin/Globulin Ratio Lipase Urine Color [place] Urine Turbidity Clear Urine pH 5.0 Ur Specific [place] 1.033 H Urine Protein 100 mg/dl Urine Glucose (UA) Neg Urine Ketones Tr Urine Blood Neg Urine Nitrite Neg Urine Bilirubin Sm Urine Ictotest Negative Urine Urobilinogen 4.0 Ur Leukocyte Esterase Lg Urine WBC (Auto) 60.0 H Urine RBC (Auto) 28.0 U Epithel Cells (Auto) 2.0 Urine Bacteria (Auto) 1+ Urine Mucus 3+ Plasma/Serum Alcohol < 0.01 - Call Back decision Pt Call Back Decision: Pt to F/U with PMD
== END 2016-10-17 23:00 | disposition left against medical advice (07) ==
LOC: ED 10:55
DX: R11.2 Nausea with vomiting, unspecified (principal); Z53.21 Procedure and treatment not carried out due to patient leaving prior to being seen by health care provider
CPT/HCPCS: 36415; 80053; 81001; 83690; 85025; 85610; 85730; G0480; 80320

== ENCOUNTER 2016-10-18 08:47 | Emergency (ER) | payer MEDICAID ==
[2016-10-18 09:38] LABS: Basophils % (Auto) 0.6 % (0.0-1.8); Eosinophils % (Auto) 0.5 % (0.0-4.3); Mean Corpuscular HGB Conc 30 % (32-34); Platelet Count 128 K/mm3 (140-440); Red Blood Count 6.08 M/mm3 (3.65-5.03); White Blood Count 5.4 K/mm3 (4.5-11.0)
[2016-10-18 09:40] LABS: Hematocrit 42.2 % (35.5-45.6); Hemoglobin 12.8 gm/dl (11.8-15.2); Mean Corpuscular Hemoglobin 21 pg (28-32); Mean Corpuscular Volume 69 fl (84-94); Red Cell Distribution Width 20.4 % (13.2-15.2)
[2016-10-18 09:56] LABS: Anion Gap 21 mmol/L; BUN/Creatinine Ratio 16.36; Blood Urea Nitrogen 18 mg/dL (9-20); Calcium 9.3 mg/dL (8.4-10.2); Carbon Dioxide 25 mmol/L (22-30); Chloride 98.3 mmol/L (98-107); Glucose 100 mg/dL (75-100); Potassium 3.8 mmol/L (3.6-5.0); Sodium 140 mmol/L (137-145)
--- NOTE | 2016-10-18 13:24 | Emergency Department Report ---
HPI - General Chief Complaint: Chest Pain Time Seen by Provider: 10/18/16 12:50 - HPI HPI: PATIENT WITH EPIGASTRIC DISCOMFORT, NAUSEA, X 2 DAYS. PATIENT STATES HE IS HOMELESS AND HAS NOT BEEN EATING HE SHOULD AND THINKS THE PAIN IS GAS RELATED. HE ALSO HAS CRAMPING IN LOWER ABDOMEN, BUT NO FEVER, NO DYSURIA. ED Past Medical Hx - Past Medical History Previous Medical History?: No Hx Hypertension: No Hx Congestive Heart Failure: No Hx Diabetes: No Hx Sickle Cell Disease: No Hx Asthma: No Hx COPD: No - Surgical History Past Surgical History?: Yes Additional Surgical History: right arm and leg and left elbow repair - Social History Smoking Status: Current Every Day Smoker Substance Use Type: Alcohol - Medications Home Medications: Home Medications Medication Instructions Recorded Confirmed Last Taken Type Amoxicillin 500 mg PO BID #20 capsule 07/14/16 Unknown Rx Clarithromycin [Biaxin] 500 mg PO BID #20 tab 07/14/16 Unknown Rx LORazepam [Ativan] 0.5 mg PO Q6H PRN #30 tablet 07/14/16 Unknown Rx Pantoprazole [Protonix TAB] 40 mg PO QDAY #30 tablet 07/14/16 Unknown Rx Hyoscyamine Subl [Levsin Sl 0.125 0.125 mg PO Q6HR #30 tablet 10/18/16 Unknown Rx TAB] ED Review of Systems ROS: Stated complaint: NAUSEA Other details as noted in HPI Comment: All other systems reviewed and negative Cardiovascular: chest pain Endocrine: no symptoms reported Gastrointestinal: as per HPI, nausea Physical Exam - Physical Exam Vital Signs: Vital Signs 10/18/16 09:01 Temperature 98.5 F Pulse Rate 90 Respiratory 18 Rate Blood Pressure 127/90 O2 Sat by Pulse 100 Oximetry Physical Exam: gen: alert and oriented x3 heent: perrla, eomi cv: rrr, nl s1, s2 lungs: cta bila abd: s,nt,nd, pos bs ext: no edema SKIN-NORMAL TURGOR neuro: no deficits psych: normal mood, ED Course Vital Signs 10/18/16 09:01 Temperature 98.5 F Pulse Rate 90 Respiratory 18 Rate Blood Pressure 127/90 O2 Sat by Pulse 100 Oximetry ED Medical Decision Making - Lab Data Result diagrams: 10/18/16 09:18 10/18/16 09:18 Critical care attestation.: If time is entered above; I have spent that time in minutes in the direct care of this critically ill patient, excluding procedure time. ED Disposition Clinical Impression: Abdominal pain Disposition: DC-01 TO HOME OR SELFCARE Is pt being admited?: No Does the pt Need Aspirin: No Condition: Stable Prescriptions: Hyoscyamine Subl [Levsin Sl 0.125 TAB] 0.125 mg PO Q6HR #30 tablet Referrals: PRIMARY CARE, [Primary Care Provider] - 3-5 Days
[2016-10-18 13:28] VITALS: BP 122/87
== END 2016-10-18 13:29 | disposition home or self-care (01) ==
LOC: ED 08:47
DX: R10.9 Unspecified abdominal pain (principal); F17.200 Nicotine dependence, unspecified, uncomplicated
CPT/HCPCS: 36415; 80048; 84484; 85025; 93005; 93010

== ENCOUNTER 2017-10-18 23:01 | Emergency (ER) | payer SELFPAY ==
[2017-10-19 00:40] VITALS: BP 113/80
[2017-10-19] MEDS ORDERED: ASPIRIN PO ONE (01:59)
[2017-10-19 02:28] LABS: Basophils % (Auto) 0.7 % (0.0-1.8); Hematocrit 45.2 % (35.5-45.6); Hemoglobin 14.3 gm/dl (11.8-15.2); Lymphocytes # (Auto) 1.3 K/mm3 (1.2-5.4); Lymphocytes % (Auto) 30.4 % (13.4-35.0); Mean Corpuscular HGB Conc 32 % (32-34); Mean Corpuscular Volume 76 fl (84-94); Monocytes # (Auto) 0.4 K/mm3 (0.0-0.8); Platelet Count 136 K/mm3 (140-440); Red Blood Count 5.99 M/mm3 (3.65-5.03); Red Cell Distribution Width 14.6 % (13.2-15.2)
[2017-10-19 02:35] LABS: BUN/Creatinine Ratio 11; Blood Urea Nitrogen 9 mg/dL (9-20); Calcium 9.2 mg/dL (8.4-10.2); Hemolysis Index 4
[2017-10-19 02:36] LABS: Mean Corpuscular Hemoglobin 24 pg (28-32)
[2017-10-19 04:13] LABS: Amphetamine Screen,Urine PRESUMPTIVE NEGATIVE; Benzodiazepines Screen,Urine PRESUMPTIVE NEGATIVE; Cannabinoid Screen,Urine PRESUMPTIVE NEGATIVE; Cocaine Screen,Urine PRESUMPTIVE NEGATIVE; Methadone Screen,Urine PRESUMPTIVE NEGATIVE; Opiate Screen,Urine PRESUMPTIVE NEGATIVE
[2017-10-19 04:30] LABS: Bilirubin,Urine NEG (Negative); Blood,Urine NEG (Negative); Color,Urine Colorless (Yellow); Mucus,Urine FEW /HPF; Protein,Urine <15 mg/dL mg/dL (Negative); RBC,Urine < 1.0 /HPF (0.0-6.0); Urobilinogen,Urine < 2.0 mg/dL (<2.0); WBC,Urine < 1.0 /HPF (0.0-6.0)
== END 2017-10-19 02:30 | disposition left against medical advice (07) ==
LOC: ED 23:01
DX: F10.10 Alcohol abuse, uncomplicated (principal); Z79.899 Other long term (current) drug therapy; Z53.21 Procedure and treatment not carried out due to patient leaving prior to being seen by health care provider
CPT/HCPCS: 36415; 80048; 80307; 81001; 84484; 85025; 93005; 93010; G0480; 80320

== ENCOUNTER 2018-05-13 12:23 | Emergency (ER) | payer MEDICARE ==
--- NOTE | 2018-05-13 12:35 | Emergency Department Report ---
Blank Doc - Documentation Documentation: This is a 68-year-old male that presents with abdominal pain with nausea vomit ing x2 weeks. This initial assessment/diagnostic orders/clinical plan/treatment(s) is/are subject to change based on patient's health status, clinical progression and re- assessment by fellow clinical providers in the ED. Further treatment and workup at subsequent clinical providers discretion. Patient/guardians urged not to elope from the ED as their condition may be serious if not clinically assessed and managed. Initial orders include: 1- Patient sent to [facility] for further evaluation and treatment 2- labs 3- UA
[2018-05-13 12:38] VITALS: BP 149/84
[2018-05-13 13:12] LABS: Basophils % (Auto) 1.2 % (0.0-1.8); Eosinophils % (Auto) 0.6 % (0.0-4.3); Hematocrit 42.9 % (35.5-45.6); Hemoglobin 13.6 gm/dl (11.8-15.2); Lymphocytes # (Auto) 1.1 K/mm3 (1.2-5.4); Lymphocytes % (Auto) 26.4 % (13.4-35.0); Mean Corpuscular HGB Conc 32 % (32-34); Mean Corpuscular Volume 76 fl (84-94); Monocytes # (Auto) 0.5 K/mm3 (0.0-0.8); Monocytes % (Auto) 10.7 % (0.0-7.3); Platelet Count 153 K/mm3 (140-440); Red Blood Count 5.65 M/mm3 (3.65-5.03); Red Cell Distribution Width 14.4 % (13.2-15.2)
[2018-05-13 13:22] LABS: Bilirubin,Urine NEG (Negative); Blood,Urine NEG (Negative); Color,Urine Yellow (Yellow); Mucus,Urine 2+ /HPF; Protein,Urine <15 mg/dL mg/dL (Negative)
[2018-05-13 13:34] LABS: Alanine Aminotransferase 10 units/L (7-56); Albumin 3.8 g/dL (3.9-5); BUN/Creatinine Ratio 10; Blood Urea Nitrogen 8 mg/dL (9-20); Calcium 9.6 mg/dL (8.4-10.2); Hemolysis Index 6
[2018-05-13 13:44] LABS: Bilirubin,Direct < 0.2 mg/dL (0-0.2)
[2018-05-13] MEDS ORDERED: ZOFRAN ODT PO ONE (15:21)
[2018-05-13] MEDS ORDERED: BENTYL IM ONE (15:21)
--- NOTE | 2018-05-13 15:35 | Emergency Department Report ---
ED Abdominal Pain HPI - General Chief Complaint: Abdominal Pain Stated Complaint: STOMACH PAIN Time Seen by Provider: 05/13/18 12:34 Source: patient Mode of arrival: Ambulatory Limitations: No Limitations - History of Present Illness Initial Comments: Patient is a 68-year-old male who is presenting with some nausea vomiting and upper abdominal pain for the past 2 weeks. Patient has a history of gastric ulcer disease as well as chronic pancreatitis. Patient does have a history of heavy alcohol use but has not been drinking last 2 weeks since his pain started. Patient's had multiple episodes of nausea vomiting per day but denies diarrhea. Patient also denies any fevers painful urination and urinary frequency cough cold or congestion. Patient was seen here several months ago for the same and states that the Zofran ODT helped tremendously. Severity scale (0 -10): 4 - Related Data Previous Rx's Medication Instructions Recorded Last Taken Type Amoxicillin 500 mg PO BID #20 capsule 07/14/16 Unknown Rx Clarithromycin [Biaxin] 500 mg PO BID #20 tab 07/14/16 Unknown Rx LORazepam [Ativan] 0.5 mg PO Q6H PRN #30 tablet 07/14/16 Unknown Rx Pantoprazole [Protonix TAB] 40 mg PO QDAY #30 tablet 07/14/16 Unknown Rx Hyoscyamine Subl [Levsin Sl 0.125 0.125 mg PO Q6HR #30 tablet 10/18/16 Unknown Rx TAB] Dicyclomine [Bentyl] 10 mg PO QID #15 capsule 05/13/18 Unknown Rx Ondansetron [Zofran Odt] 4 mg PO Q8HR PRN #10 tab.rapdis 05/13/18 Unknown Rx Sucralfate [Carafate] 1 gm PO QID 15 Days oral.susp 05/13/18 Unknown Rx traMADol [Ultram] 50 mg PO Q6HR PRN #10 tablet 05/13/18 Unknown Rx Allergies Allergy/AdvReac Type Severity Reaction Status Date / Time No Known Allergies Allergy Unverified 11/09/15 12:39 ED Review of Systems ROS: Stated complaint: STOMACH PAIN Other details as noted in HPI Comment: All other systems reviewed and negative ED Past Medical Hx - Past Medical History Previous Medical History?: No Hx Hypertension: No Hx Congestive Heart Failure: No Hx Diabetes: No Hx Sickle Cell Disease: No Hx Asthma: No Hx COPD: No - Surgical History Additional Surgical History: right arm and leg and left elbow repair - Social History Smoking Status: Current Every Day Smoker Substance Use Type: Alcohol - Medications Home Medications: Home Medications Medication Instructions Recorded Confirmed Last Taken Type Amoxicillin 500 mg PO BID #20 capsule 07/14/16 Unknown Rx Clarithromycin [Biaxin] 500 mg PO BID #20 tab 07/14/16 Unknown Rx LORazepam [Ativan] 0.5 mg PO Q6H PRN #30 tablet 07/14/16 Unknown Rx Pantoprazole [Protonix TAB] 40 mg PO QDAY #30 tablet 07/14/16 Unknown Rx Hyoscyamine Subl [Levsin Sl 0.125 0.125 mg PO Q6HR #30 tablet 10/18/16 Unknown Rx TAB] Dicyclomine [Bentyl] 10 mg PO QID #15 capsule 05/13/18 Unknown Rx Ondansetron [Zofran Odt] 4 mg PO Q8HR PRN #10 tab.rapdis 05/13/18 Unknown Rx Sucralfate [Carafate] 1 gm PO QID 15 Days oral.susp 05/13/18 Unknown Rx traMADol [Ultram] 50 mg PO Q6HR PRN #10 tablet 05/13/18 Unknown Rx ED Physical Exam - General Limitations: No Limitations General appearance: alert, in no apparent distress - Head Head exam: Present: atraumatic, normocephalic - Eye Eye exam: Present: normal appearance - ENT ENT exam: Present: normal orophraynx, mucous membranes moist - Neck Neck exam: Present: normal inspection - Respiratory Respiratory exam: Present: normal lung sounds bilaterally. Absent: respiratory distress, wheezes, rales, rhonchi - Cardiovascular Cardiovascular Exam: Present: regular rate, normal rhythm. Absent: systolic murmur, diastolic murmur, rubs, gallop - GI/Abdominal GI/Abdominal exam: Present: soft, tenderness (epigastric), normal bowel sounds. Absent: distended, guarding, rebound, rigid - Rectal Rectal exam: Present: deferred - Extremities Exam Extremities exam: Present: normal inspection - Back Exam Back exam: Present: normal inspection - Neurological Exam Neurological exam: Present: alert, oriented X3 - Psychiatric Psychiatric exam: Present: normal affect, normal mood - Skin Skin exam: Present: warm, dry, intact, normal color. Absent: rash ED Course Vital Signs 05/13/18 12:35 Temperature 98.7 F Pulse Rate 86 Respiratory 18 Rate Blood Pressure 149/84 O2 Sat by Pulse 96 Oximetry ED Medical Decision Making - Lab Data Result diagrams: 05/13/18 12:53 05/13/18 12:53 Lab Results 05/13/18 05/13/18 05/13/18 Range/Units 12:53 12:53 12:56 WBC 4.2 L (4.5-11.0) K/mm3 RBC 5.65 H (3.65-5.03) M/mm3 Hgb 13.6 (11.8-15.2) gm/dl Hct 42.9 (35.5-45.6) % MCV 76 L (84-94) fl MCH 24 L (28-32) pg MCHC 32 (32-34) % RDW 14.4 (13.2-15.2) % Plt Count 153 (140-440) K/mm3 Lymph % (Auto) 26.4 (13.4-35.0) % [place] % (Auto) 10.7 H (0.0-7.3) % Eos % (Auto) 0.6 (0.0-4.3) % Baso % (Auto) 1.2 (0.0-1.8) % Lymph # 1.1 L (1.2-5.4) K/mm3 [place] # 0.5 (0.0-0.8) K/mm3 Eos # 0.0 (0.0-0.4) K/mm3 Baso # 0.0 (0.0-0.1) K/mm3 Seg Neutrophils % 61.1 (40.0-70.0) % Seg Neutrophils # 2.6 (1.8-7.7) K/mm3 Sodium 138 (137-145) mmol/L Potassium 3.8 (3.6-5.0) mmol/L Chloride 99.7 (98-107) mmol/L Carbon Dioxide 29 (22-30) mmol/L Anion Gap 13 mmol/L BUN 8 L (9-20) mg/dL Creatinine 0.8 (0.8-1.5) mg/dL Estimated GFR > 60 ml/min BUN/Creatinine Ratio 10 % Glucose 96 (75-100) mg/dL Calcium 9.6 (8.4-10.2) mg/dL Total Bilirubin 0.20 (0.1-1.2) mg/dL Direct Bilirubin < 0.2 (0-0.2) mg/dL Indirect Bilirubin 0.0 mg/dL AST 11 (5-40) units/L ALT 10 (7-56) units/L Alkaline Phosphatase 79 (35-129) units/L Total Protein 6.8 (6.3-8.2) g/dL Albumin 3.8 L (3.9-5) g/dL Albumin/Globulin Ratio 1.3 % Lipase 50 (13-60) units/L Urine Color Yellow (Yellow) Urine Turbidity Clear (Clear) Urine pH 6.0 (5.0-7.0) Ur Specific [place] 1.026 (1.003-1.030) Urine Protein <15 mg/dl (Negative) mg/dL Urine Glucose (UA) Neg (Negative) mg/dL Urine Ketones Neg (Negative) mg/dL Urine Blood Neg (Negative) Urine Nitrite Neg (Negative) Urine Bilirubin Neg (Negative) Urine Urobilinogen 2.0 (<2.0) mg/dL Ur Leukocyte Esterase Mod (Negative) Urine WBC (Auto) 22.0 H (0.0-6.0) /HPF Urine RBC (Auto) 7.0 (0.0-6.0) /HPF U Epithel Cells (Auto) 2.0 (0-13.0) /HPF Urine Mucus 2+ /HPF - Medical Decision Making Patient's lipase is within normal limits making acute pancreatitis less likely. Patient likely with some gastritis and possible peptic ulcer disease. Patient will be started on meds for symptomatic relief and will be discharged home with follow-up with GI. Critical care attestation.: If time is entered above; I have spent that time in minutes in the direct care of this critically ill patient, excluding procedure time. ED Disposition Clinical Impression: Gastritis Qualifiers: Gastritis type: unspecified gastritis Chronicity: acute Gastritis bleeding: w ithout bleeding Qualified Code(s): K29.00 - Acute gastritis without bleeding Disposition: TO HOME OR SELFCARE Is pt being admited?: No Does the pt Need Aspirin: No Condition: Stable Instructions: Gastritis (ED) Referrals: AMY ZAMAN MD [Staff Physician] - 3-5 Days Time of Disposition: 15:34
== END 2018-05-13 15:45 | disposition home or self-care (01) ==
LOC: ED 12:23
DX: K29.00 Acute gastritis without bleeding (principal); F17.200 Nicotine dependence, unspecified, uncomplicated; Z79.899 Other long term (current) drug therapy
CPT/HCPCS: 36415; 80048; 80076; 81001; 83690; 85025; 96372; 99283; J0500; Q0162